=== PATIENT | female | born 1940 | race Caucasian/White ===

== ENCOUNTER 2016-02-26 11:50 | Emergency (ER) | payer MEDICARE ==
[2016-02-26 12:04] VITALS: TEMP 98.1; BMI 25.7
--- NOTE | 2016-02-26 12:41 | EDPRACDOC ---
- General Information Chief Complaint: Blood Pressure (Problems) Stated Complaint: ELEVATED BP NO CP Time Seen by Provider: 02/26/16 12:20 Information Source: Patient, Parent Home Medications: Home Medications Cyanocobalamin (Vitamin B-12) [Vitamin B-12] 100 mcg PO DAILY 02/26/16 HydrALAZINE (Cardiovascular) [Apresoline] 25 mg PO BID 02/26/16 Losartan Potassium [Cozaar] 100 mg PO DAILY 02/26/16 Omeprazole 20 mg PO DAILY 02/26/16 Simvastatin [Zocor] 20 mg PO QHS 02/26/16 Spironolactone [Aldactone] 12.5 mg PO DAILY 02/26/16 Ubidecarenone [Co Q-10] 100 mg PO DAILY 02/26/16 Allergies/Adverse Reactions: Allergies Allergy/AdvReac Type Severity Reaction Status Date / Time Iodinated Contrast Media - Allergy Hives* Verified 02/26/16 12:04 IV Dye Penicillins Allergy Hives* Verified 02/26/16 12:04 Sulfa (Sulfonamide Allergy Hives* Verified 02/26/16 12:04 Antibiotics) - History of Present Illness Onset: today HPI: BP HIGH; VERY ANXIOUS AND JITTERY ABOUT THE NUMBERS. RANGES FROM 140 TO 200 ON HER MACHINE AT HOME. NO SXS. SOMETIMES FEELS PULSE IN TOES. SPENT A LONG TIME WITH PT EDUCATING HER ABOUT FRAMEMAN MANAGEMENT OF HTN AND IMPORTANCE OF FRAMEMAN TREATMENT. THE IMPORTANCE OF NOT FOCUSING ON ONE ISOLATED NUMBER. PT STILL VERY ANXIOUS AND WANTS EXACT ANSWER. FORTUNATELY DR. WRIGHT WAS ON TODAY AND I CALLED HER. PT HAS BEEN ON MANY DIFFERENT AGENTS AND SIDE EFFECTS CAUSED CHANGE. PT IS KNOWN TO VERY ANXIOUS. WE WILL INCREASE HYDRALAZINE TO THREE TIMES A DAY AND SHE WILL FU IN OFFICE. Symptoms: Reports: None Circumstances: Reports: Spontaneous Onset Relevent History of: Reports: Hypertension Hypertension Treatment: Reports: Taking Medication Recent Use of: Reports: None Associated Signs and Symptoms: Reports: None ED Past Medical History - History Reviewed Yes Nurses notes reviewed and agree except as marked - Patient Medical History Cardiac History: Reports: Hypertension Psychological History: Denies: Depression Systemic History: Reports: Cancer (UETEREN) Surgical History: Reports: Tonsillectomy/Adnoidectomy - Social Medical History Smoking Status: Never smoker EDM Review of Systems - Review of Systems ROS Negative Except as Marked: Yes All systems reviewed and were negative except as marked - Physical Exam Constitutional: Alert (Awake), No apparent distress Oriented to: Time, Person, Place Last recorded Vital Signs: Last Vital Signs Temp 98.1 F 02/26/16 12:01 Pulse 91 02/26/16 12:04 Resp 16 02/26/16 12:04 BP 180/88 H 02/26/16 12:04 Pulse Ox 100 02/26/16 12:04 Oxygen Pulse Oxygen Saturation 100 O2 Device Oxygen Flow Rate Fraction of Inspired Oxygen ( FIO2) - HEENT Head: Normal ( normocephalic) Eye Exam: Normal (PERRL, EOMI, Sclera white) Oropharynx: Normal (Pharynx:Moist without exudate,Gums-no swelling) Tympanic Membrane: Normal ENT EAC: Normal TMJ: Normal Nose: No Symptoms Reported (septum midline) Neck: Normal (FROM, trachea at midline) - Respiratory/Cardiovascular Respiratory: Normal - CTA (BBS clear to auscultation without adventitious sounds ) Cardiovascular: Normal (RRR without murmur, gallop or rub) - GI Auscultation: Normal (NABS) Palpation: Normal (Soft,No rebound or guarding, non distended) Tenderness: Non tender Chun's Sign: Negative - Musculoskeletal Back: Normal (Non-Tender) Extremities: Normal (Normal tone, Pulses 2+ No cyanosis or edema, FROM) - Integumentary Skin: Normal, Warm, Dry Lymphatics: Normal (no adenopathy) - Neurologic Memory Impaired: Normal Motor Function: Normal (Normal tone, Pulses 2+ No cyanosis or edema, FROM) Cranial Nerve: Normal (CN II-X11 intact sensation, strength 5/5) Cerebellar: Normal Mood Description: Normal Perception: Normal - EKG EKG #1 [place]: Normal Rhythm: NSR Block: LBBB Hypertrophy: None ST: Normal Decision Time to Discharge: 13:23 - Departure Yes I personally saw and evaluated the patient. Disposition: Home Condition: Good Final Diagnosis: HTN URGENCY Instructions: Chronic Hypertension (ED) Education/Counseling Given To: Patient Education/Counseling Given Regarding: Diagnosis, Treatment, Prognosis Referrals: Keshia Wright MD [Primary Care Provider] - One Week Additional Instructions: CONTACT DR. WRIGHT TOMORROW FOR BP RECHECK
[2016-02-26 14:03] VITALS: BP 178/85; PULSE 90
== END 2016-02-26 13:46 | disposition home or self-care (01) ==
LOC: ED 11:50
DX: I16.0 Hypertensive urgency (principal)
CPT/HCPCS: 93005; 99284

== ENCOUNTER 2016-03-17 08:13 | Emergency (ER) | payer MEDICARE ==
[2016-03-17 08:14] VITALS: BMI 25.7
--- NOTE | 2016-03-17 08:32 | EDPRACDOC ---
- General Information Stated Complaint: PALPITATIONS Time Seen by Provider: 03/17/16 08:25 Information Source: Patient Mode of Arrival: Car Home Medications: Home Medications Cyanocobalamin (Vitamin B-12) [Vitamin B-12] 100 mcg PO DAILY 02/26/16 HydrALAZINE (Cardiovascular) [Apresoline] 50 mg PO BID 02/26/16 Losartan Potassium [Cozaar] 100 mg PO DAILY 02/26/16 Omeprazole 20 mg PO DAILY 02/26/16 Simvastatin [Zocor] 20 mg PO QHS 02/26/16 Spironolactone [Aldactone] 12.5 mg PO DAILY 02/26/16 Ubidecarenone [Co Q-10] 100 mg PO DAILY 02/26/16 Allergies/Adverse Reactions: Allergies Allergy/AdvReac Type Severity Reaction Status Date / Time Iodinated Contrast Media - Allergy Hives* Verified 03/17/16 08:38 IV Dye Penicillins Allergy Hives* Verified 03/17/16 08:38 Sulfa (Sulfonamide Allergy Hives* Verified 03/17/16 08:38 Antibiotics) - History of Present Illness HPI: PT'S HEART IS POUNDING HARD. BP ELEVATED YESTERDAY, PCP INCREASED HER BP MEDICATION. THIS AM HEART POUNDING, NAUSEA. NO CHEST PAIN. KNOWN LEFT BBB. HAD NEGATIVE RENAL U/S THIS WEEK. ECHO DONE WELL. HAD BEEN ON 25 MG OF HYDRALAZINE, INCREASED TO 50 MG YESTERDAY. SOME SOB. ED Past Medical History - History Reviewed Yes Nurses notes reviewed and agree except as marked - Patient Medical History Cardiac History: Reports: Hypertension Psychological History: Denies: Depression Systemic History: Reports: Cancer (UETEREN) Surgical History: Reports: Tonsillectomy/Adnoidectomy - Social Medical History Smoking Status: Never smoker EDM Review of Systems - Review of Systems ROS Negative Except as Marked: Yes All systems reviewed and were negative except as marked Constitutional: No Symptoms Reported Mouth: No Symptoms Reported Respiratory: Shortness of Breath Cardiovascular: Palpitations Gastrointestinal: Nausea Genitourinary: No Symptoms Reported Neurological: Headache (MILD THIS AM.) - Physical Exam Constitutional: Alert (Awake), No apparent distress Oriented to: Time, Person, Place Last recorded Vital Signs: Oxygen Pulse Oxygen Saturation O2 Device Oxygen Flow Rate Fraction of Inspired Oxygen ( FIO2) - HEENT Head: Normal ( normocephalic) Eye Exam: Normal (PERRL, EOMI, Sclera white) Oropharynx: Normal (Pharynx:Moist without exudate,Gums-no swelling) Nose: No Symptoms Reported (septum midline) Neck: Normal (FROM, trachea at midline) - Respiratory/Cardiovascular Respiratory: Normal - CTA (BBS clear to auscultation without adventitious sounds ) Cardiovascular: Tachycardia - GI Auscultation: Normal (NABS) Palpation: Normal (Soft,No rebound or guarding, non distended) Tenderness: Non tender Chun's Sign: Negative - Musculoskeletal Back: Normal (Non-Tender) Extremities: Normal (Normal tone, Pulses 2+ No cyanosis or edema, FROM) - Integumentary Skin: Normal, Warm, Dry Lymphatics: Normal (no adenopathy) - Neurologic Memory Impaired: Normal Motor Function: Normal (Normal tone, Pulses 2+ No cyanosis or edema, FROM) Cranial Nerve: Normal (CN II-X11 intact sensation, strength 5/5) Cerebellar: Normal Mood Description: Normal Perception: Normal - Results 03/17/16 08:35 03/17/16 08:35 - EKG EKG #1 Initial EKG Time: 08:22 -: Yes EKG interpreted by me Rate: bpm: 114 Rhythm: ST Block: LBBB Hypertrophy: None Comments: ABNORMAL EKG - Departure Yes I personally saw and evaluated the patient. Disposition: Home Condition: Stable Final Diagnosis: Palpitations, Pulmonary nodule Referrals: None,No Provider [Primary Care Provider] - One Week Prescriptions: No Action Simvastatin [Zocor] 20 mg PO QHS Cyanocobalamin (Vitamin B-12) [Vitamin B-12] 100 mcg PO DAILY Ubidecarenone [Co Q-10] 100 mg PO DAILY Losartan Potassium [Cozaar] 100 mg PO DAILY HydrALAZINE (Cardiovascular) [Apresoline] 50 mg PO BID Spironolactone [Aldactone] 12.5 mg PO DAILY Omeprazole 20 mg PO DAILY
[2016-03-17 08:38] VITALS: TEMP 97.1
[2016-03-17 08:47] LABS: AUTOMATED BASOPHIL 0.3 % (0-2); AUTOMATED EOSINOPHIL 0.7 % (0-5); MPV 8.8 fL (7.4-10.4)
[2016-03-17 08:59] LABS: PARTIAL THROMB. TIME 23.3 SEC (22-35)
[2016-03-17 09:00] LABS: BLOOD UREA NITROGEN 19 MG/DL (7-17); CALCIUM 9.8 MG/DL (8.4-10.2); CALCULATED OSMOLALITY 273 MOs/Kg (270-290); CHLORIDE 103 mEq/L (98-107); GLUCOSE 154 mg/dL (70-99); SODIUM LEVEL 139 mEq/L (137-146); TOTAL PROTEIN 8.2 G/DL (6.3-8.2)
[2016-03-17 09:16] LABS: FREE T3 3.61 pg/mL (2.77-5.27); FREE T4 1.46 ng/dL (0.78-2.19)
[2016-03-17 09:29] LABS: hTSH 2.83 uIU/mL (0.5-4.67)
--- NOTE | 2016-03-17 09:44 | DIRPT ---
CLINICAL DATA: Arrhythmia. Palpitations this morning. EXAM: PORTABLE CHEST 1 VIEW COMPARISON: 12/10/2012 FINDINGS: The cardiac silhouette is within normal limits for size. Mild scarring is again seen in the right lung apex. There is a 1.5 cm rounded density projecting in the left lung base. Faintly increased although less discrete density is present at the same level in the right lung base. There is also new ill-defined right infrahilar density. No sizable pleural effusion or pneumothorax is identified. No acute osseous abnormality is seen. IMPRESSION: 1. New right infrahilar density which could reflect developing infection. 2. Nipple shadow versus nodule in the left lung base. Repeat study with nipple markers suggested. Electronically Signed By: Mario Bass M.D. On: 03/17/2016 09:42
[2016-03-17] MEDS ORDERED: ACETAMINOPHEN 325 MG/TAB TABLET PO ONE (10:01)
--- NOTE | 2016-03-17 11:01 | DIRPT ---
CLINICAL DATA: Palpitations, nausea EXAM: CT CHEST WITHOUT CONTRAST TECHNIQUE: Multidetector CT imaging of the chest was performed following the standard protocol without IV contrast. COMPARISON: None. FINDINGS: The central airways are patent. The lungs are clear. There is no focal consolidation, pleural effusion or pneumothorax. There is a 4 mm subpleural left lower lobe pulmonary nodule. There is mild biapical scarring. There is no pleural effusion or pneumothorax. There are no pathologically enlarged axillary, hilar or mediastinal lymph nodes. The heart size is normal. There is coronary artery atherosclerosis in the LAD. There is no pericardial effusion. The thoracic aorta is normal in caliber. There is a left Bochdalek's hernia. Review of bone windows demonstrates no focal lytic or sclerotic lesions. Limited non-contrast images of the upper abdomen were obtained. The adrenal glands appear normal. The remainder of the visualized abdominal organs are unremarkable. IMPRESSION: 1. No acute cardiopulmonary disease. 2. 4 mm subpleural left lower lobe pulmonary nodule. If the patient is at high risk for bronchogenic carcinoma, follow-up chest CT at 1year is recommended. If the patient is at low risk, no follow-up is needed. This recommendation follows the consensus statement: Guidelines for Management of Small Pulmonary Nodules Detected on CT Scans: A Statement from the Fleischner Society as published in Radiology 2005; 237:395-400. Electronically Signed By: Miya Lugo On: 03/17/2016 10:58
[2016-03-17] MEDS ORDERED: LORAZEPAM 2 MG/ML VIAL IV ONE (11:15)
[2016-03-17] MEDS ORDERED: METOPROLOL 5 MG/5 ML SDV IV ONE (11:20)
[2016-03-17 13:09] LABS: LEUKOCYTES/URINE TRACE (NEGATIVE); NITRITE/URINE NEG (NEGATIVE); RBC/URINE 0-2 (0-5); URINE OCCULT BLOOD NEG (NEG/TRACE)
[2016-03-17] MEDS ORDERED: NITROFURANTOIN 100 MG CAP PO ONE (13:17)
[2016-03-17 13:57] VITALS: BP 134/61; PULSE 85
== END 2016-03-17 13:56 | disposition home or self-care (01) ==
LOC: ED 08:13
DX: R91.1 Solitary pulmonary nodule (principal); R00.2 Palpitations
CPT/HCPCS: 36415; 71010; 71250; 80053; 81001; 83880; 84439; 84443; 84481; 84484; 85025; 85610; 85730; 87086; 93005; 96374; 96375; 99284; A9270; J2060; J3490